=== PATIENT | female | born 1950 | race Caucasian/White ===

== ENCOUNTER 2016-06-23 18:58 | Emergency (ER) | payer MEDICARE, OTHER ==
[2016-06-23 20:53] LABS: MEAN CORPUSCULAR HEMOGLOBIN 30.2 pg (28.0-34.0); MEAN CORPUSCULAR VOLUME 90.3 fl (80.0-100.0)
[2016-06-23 21:13] LABS: eGFR (African) > 60; eGFR (Non-African) > 60
--- NOTE | 2016-06-23 21:14 | ED Physician Documentation ---
Altered Mental Status - HISTORIAN Historian: patient - HPI Stated Complaint: NH states pt has new unequal pupils Chief Complaint: Altered Mental Status Onset: other (today) Duration: sudden onset Last known Well Date: 06/23/16 Last Known Well Time: 17:00 Last known Well Code/Unknown Code: Unknown Character of Altered Mental Status: decreased responsiveness Context: detention resident, other (old cva) Cognition is Usually: other (answers questions appropriately) Gait is Usually: other (not ambulatory) Associated Symptoms: none Further Comments: no - ROS EYES/ENT: other (left pupil > right) CVS/RESP: none GI/: none MS/SKIN/LYMPH: none NEURO/PSYCH: other (more somnolent) - PAST HX Past History: CVA, depression Other History: hypertension, other (gerd) Allergies/Adverse Reactions: Allergies Allergy/AdvReac Type Severity Reaction Status Date / Time No Known Allergies Allergy Verified 06/23/16 21:01 Home Medications: Ambulatory Orders Medication Instructions Recorded Baclofen 10 mg PO TID 06/23/16 Carvedilol [Coreg] 12.5 mg PO BID 06/23/16 Docusate Sodium [Colace] 100 mg PO BID 06/23/16 Duloxetine HCl [Cymbalta] 20 mg PO HS 06/23/16 Melatonin 5 mg PO HS 06/23/16 - SOCIAL HX Smoking History: non-smoker Alcohol Use: none Drug Use: none - FAMILY HX Family History: no significant history - VITAL SIGNS Vital Signs: Vital Signs Temp Pulse Resp BP Pulse Ox 98.6 F 75 16 106/53 95 06/23/16 18:58 06/23/16 18:58 06/23/16 18:58 06/23/16 18:58 06/23/16 18:58 - REVIEWED ASSESSMENTS Nursing Assessment Reviewed: Yes Vitals Reviewed: Yes Progress - Results/Orders Results/Orders: cmp, ct head, ua ordered - Progress Progress: pt. given 1 bactrim DS 1 p.o. in er Critical Care Note - Critical Care Note Total Time (mins): 0 ED Results Lab/Radiology - Lab Results Lab Results: Lab Results 06/23/16 20:40 WBC 5.30 K/ul K/ul (4.00-12.00) RBC 4.38 M/ul M/ul (3.90-5.20) Hgb 13.2 g/dL g/dL (12.0-16.0) Hct 39.6 % % (34.5-46.5) MCV 90.3 fl fl (80.0-100.0) MCH 30.2 pg pg (28.0-34.0) MCHC 33.5 g/dL g/dL (30.0-36.0) RDW 12.8 % % (11.3-14.3) Plt Count 213 K/mm3 K/mm3 (130-400) - Radiology Radiology Impressions: ct head ashows old cva, no new changes - Orders Orders: ED Orders Category Date Time Status Catheter [Urinary catheterization] 1T Care 06/23/16 20:[address] BRAIN W/O CONTRAST Stat Exams 06/23/16 Taken CBC/PLATELET/DIFF Routine Lab 06/23/16 20:40 Completed CMP Routine Lab 06/23/16 20:40 Received URINALYSIS Routine Lab 06/23/16 19:56 Ordered Sulfamethoxazole/Trimethoprim [Bactrim Ds] Med 06/23/16 21:09 Once 1 each PO NOW ONE Altered Mental Status Physical - Physical Exam General Appearance: no acute distress Neuro/Psych: none alert, other (able to answer questions, does not really feel differemt) other (evidence of old cva) Peripheral Exam: other (evidence of old cva) HEENT: no apparent trauma, unequal pupils, left (chronically dilated) Neck: normal inspection, thyroid normal, supple Respiratory: no resp distress, chest non-tender, breath sounds normal CVS: reg rate & rhythm, heart sounds normal, equal pulses, no murmur, no gallop , PMI nml, no JVD Abdomen: non-tender, no organomegaly Skin: warm/dry, normal color Extremities: non-tender, normal range of motion, no evidence of injury, no edema Discharge Clincal Impression: Urinary tract infection Qualifiers: Urinary tract infection type: acute cystitis Hematuria presence: without hematuria Qualified Code(s): N30.00 - Acute cystitis without hematuria Referrals: Regan Walters MD [Primary Care Provider] - 2 Days Home Medications: Ambulatory Orders Baclofen 10 mg PO TID 06/23/16 Carvedilol [Coreg] 12.5 mg PO BID 06/23/16 Docusate Sodium [Colace] 100 mg PO BID 06/23/16 Duloxetine HCl [Cymbalta] 20 mg PO HS 06/23/16 Melatonin 5 mg PO HS 06/23/16 Comments: pt. transferred back to [facility] in stable condition with script for Bactrim DS #20 1 p.o. bid Condition: Stable Decision to Admit: NO Decision Time: 21:15
[2016-06-23] MEDS: SULFAMETHOXAZOLE/TRIMETHOPRIM 1 EACH TABLET PO ONE (21:20)
--- NOTE | 2016-06-23 21:40 | Diagnostic Imaging Report ---
ALTHEA TAY [facility] [id number] [facility].[address] [address] Report Submission Date: June 23, 2016 9:10:23 PM CDT Patient Study Name: MACKENZIE DICKSON Date: June 23, 2016 8:16:23 PM CDT Modality Type: CT\SR Gender: F Description: CT BRAIN W/O CONTRAST : 52 Institution: [facility] Physician: ALTHEA TAY Head CT without contrast CLINICAL HISTORY: Mental status changes. TECHNIQUE: CT examination of brain is performed in contiguous axial slices without the use of contrast. Sagittal and coronal reconstructions are performed by the technologist. FINDINGS: 4th ventricle lies in a normal midline position. Ventricles and sulci are prominent secondary to atrophy. There are chronic small vessel ischemic changes in the periventricular regions. There is an old infarct right middle cerebral artery distribution with encephalomalacia. There is no hypodense or hyperdense mass or intracranial hemorrhage. 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 Atrophy and chronic small vessel ischemic changes. Electronically signed on June 23, 2016 9:10:23 PM CDT by: Keaton VARGAS
[2016-06-23 21:50] VITALS: BP 156/68
[2016-06-24 05:49] LABS: APPEARANCE,URINE CLOUDY (CLEAR); COLOR,URINE YELLOW (YELLOW); OCCULT BLOOD,URINE TRACE-INTACT (NEGATIVE); UROBILINOGEN URINE 0.2 Eu (0.2-1.0)
[2016-06-24 07:28] LABS: MONOCYTES % 9 % (0-11); SEGMENTED NEUTROPHILS % 51 % (39-79)
== END 2016-06-23 21:30 ==
LOC: ED 18:58
DX: N30.00 Acute cystitis without hematuria (principal)
CPT/HCPCS: 51701; 70450; 80053; 81002; 85025; 87086; A9270; 99283

== ENCOUNTER 2018-06-08 15:32 | Outpatient (CLI) | payer MEDICARE, OTHER ==
--- NOTE | 2018-06-08 19:03 | Diagnostic Imaging Report ---
NISSA DUMONT [facility] [address] [facility] [address] [address] Report Submission Date: Jun 08, 2018 4:13:30 PM CDT Patient Study Name: MACKENZIE DICKSON Date: Jun 08, 2018 3:37:52 PM CDT Modality Type: DX Gender: F Description: CHEST 2VIEW : 52 Institution: [facility] Physician: NISSA DUMONT EXAMINATION: CHEST 2VIEW HISTORY: CXR, AP AND LAT, SOA, PT STATES NO KNOWN CHEST HX COMPARISON: None FINDINGS: There is no focal consolidation, pleural effusion, or pneumothorax. The heart size is at the upper limit of normal for the AP technique. The visible bony thorax is intact. IMPRESSION: No acute pulmonary process. Electronically signed on Jun 08, 2018 4:13:30 PM CDT by: Ángel VARGAS
== END 2018-06-08 15:33 ==
LOC: RAD 15:32
PROVIDERS: ATTEND Nurse Practitioner Family
DX: R06.02 Shortness of breath (principal)
CPT/HCPCS: 71046

== ENCOUNTER 2018-08-06 12:50 | Outpatient (CLI) | payer MEDICARE, OTHER ==
[2018-08-06 13:12] LABS: APPEARANCE,URINE CLOUDY (CLEAR); COLOR,URINE YELLOW (YELLOW); OCCULT BLOOD,URINE NEGATIVE (NEGATIVE); PH URINE 5.5 (5.0 - 8.0)
[2018-08-06 13:13] LABS: UROBILINOGEN URINE 0.2 Eu (0.2-1.0)
== END 2018-08-06 12:53 ==
LOC: LAB 12:50
PROVIDERS: ATTEND Family Medicine
DX: R82.90 Unspecified abnormal findings in urine (principal)
CPT/HCPCS: 81002; 87086

== ENCOUNTER 2018-11-16 06:20 | Outpatient (CLI) | payer MEDICARE, OTHER ==
[2018-11-29 07:42] LABS: A1C 6.4 % (<5.7); HDL 60 mg/dL (>40); eGFR (Non-African) > 60
== END 2018-11-16 06:30 ==
LOC: LAB 06:20
PROVIDERS: ATTEND Family Medicine
DX: E11.9 Type 2 diabetes mellitus without complications (principal); I63.521 Cerebral infarction due to unspecified occlusion or stenosis of right anterior cerebral artery; I10 Essential (primary) hypertension
CPT/HCPCS: 36415; 80053; 80061; 83036; P9604

== ENCOUNTER 2018-12-11 08:52 | Outpatient (CLI) | payer MEDICARE, OTHER ==
[2018-12-11 09:21] LABS: BASOPHILS % 0.5 % (0.0-1.5)
[2018-12-11 10:31] LABS: eGFR (Non-African) > 60
== END 2018-12-11 08:57 ==
LOC: LAB 08:52
PROVIDERS: ATTEND Family Medicine
DX: E11.9 Type 2 diabetes mellitus without complications (principal); I10 Essential (primary) hypertension; R13.10 Dysphagia, unspecified
CPT/HCPCS: 36415; 80053; 84443; 85025; P9604

== ENCOUNTER 2018-12-14 07:27 | Outpatient (CLI) | payer MEDICARE, OTHER ==
[2018-12-14 07:31] LABS: A1C 6.2 % (<5.7)
== END 2018-12-14 07:32 ==
LOC: LAB 07:27
PROVIDERS: ATTEND Family Medicine
DX: E11.9 Type 2 diabetes mellitus without complications (principal); E78.5 Hyperlipidemia, unspecified; I10 Essential (primary) hypertension
CPT/HCPCS: 36415; 80061; 83036; P9604

== ENCOUNTER 2019-02-11 23:37 | Outpatient (CLI) | payer MEDICARE, OTHER | END 2019-02-11 23:42 | LOC: LAB 23:37 | PROVIDERS: ATTEND Family Medicine | DX: E07.9 Disorder of thyroid, unspecified (principal); I10 Essential (primary) hypertension | CPT/HCPCS: 36415; 84443; P9604 ==

== ENCOUNTER 2019-02-14 07:15 | Outpatient (CLI) | payer MEDICARE, OTHER | END 2019-02-14 07:20 | LOC: LAB 07:15 | PROVIDERS: ATTEND Family Medicine | DX: E11.9 Type 2 diabetes mellitus without complications (principal); I63.521 Cerebral infarction due to unspecified occlusion or stenosis of right anterior cerebral artery; I10 Essential (primary) hypertension | CPT/HCPCS: 36415; 83036; P9604 ==

== ENCOUNTER 2019-02-21 07:20 | Outpatient (CLI) | payer MEDICARE, OTHER | END 2019-02-21 07:25 | LOC: LAB 07:20 | PROVIDERS: ATTEND Family Medicine | DX: I10 Essential (primary) hypertension (principal); Z95.5 Presence of coronary angioplasty implant and graft | CPT/HCPCS: 36415; 83036; P9604 ==